=== PATIENT | female | born 1935 | race Caucasian/White ===

== ENCOUNTER 2018-06-07 09:43 | Emergency (ER) | payer MEDICARE ==
[2018-06-07] MEDS ORDERED: NORMAL SALINE 1000 ML 1,000 ML IV ONE ×3 (10:03→13:20)
--- NOTE | 2018-06-07 10:03 | ER Document Report ---
ED Medical Screen (RME) - General Chief Complaint: Dizziness Stated Complaint: LIGHTHEADED/BLACK STOOL Time Seen by Provider: 06/07/18 09:57 Mode of Arrival: Ambulatory Information source: Patient, Relative Notes: 82-year-old female with hypertension, hyperlipidemia presents via private vehicle from home with complaint of lightheadedness and 3 episodes of black stools. Patient states that she otherwise felt well yesterday. She states that this morning she had 3 bowel movements that were black with the last one showing maroon stools. She is complaining of some abdominal discomfort but denies any nausea, vomiting. Denies history of previous GI bleed. Does have a history of diverticulitis. She is not on any blood thinning medication. Patient hypotensive upon arrival. I have greeted and performed a rapid initial assessment of this patient. A comprehensive ED assessment and evaluation of the patient, analysis of test results and completion of medical decision making process we will be contacted by additional ED providers. PHYSICAL EXAMINATION: GENERAL: Well-appearing, well-nourished and in no acute distress. HEAD: Atraumatic, normocephalic. EYES: Pupils equal round extraocular movements intact, conjunctiva are normal. ENT: Nares patent NECK: Normal range of motion LUNGS: No respiratory distress Musculoskeletal: Normal range of motion NEUROLOGICAL: Normal speech, normal gait. PSYCH: Normal mood, normal affect. SKIN: Warm, Dry, normal turgor, no rashes or lesions noted. TRAVEL OUTSIDE OF THE [place] IN LAST 30 DAYS: No - Related Data Allergies/Adverse Reactions: No Known Allergies Allergy (Verified 06/07/18 09:48) Past Medical History - Social History Chew tobacco use (# tins/day): No Frequency of alcohol use: None Drug Abuse: None Renal/ Medical History: Denies: Hx Peritoneal Dialysis Physical Exam - Vital signs Vitals: Temp Pulse Resp BP Pulse Ox 98.8 F 108 H 18 97/70 L 99 06/07/18 09:53 06/07/18 09:53 06/07/18 09:53 06/07/18 09:53 06/07/18 09:53 Course - Vital Signs Vital signs: Temp Pulse Resp BP Pulse Ox 98.8 F 108 H 18 97/70 L 99 06/07/18 09:53 06/07/18 09:53 06/07/18 09:53 06/07/18 09:53 06/07/18 09:53
[2018-06-07 10:39] LABS: ABSOLUTE BASOPHILS # (AUTO) 0.1 10^3/uL (0.0-0.2); ABSOLUTE EOSINOPHILS # (AUTO) 0.1 10^3/uL (0.0-0.6); ABSOLUTE LYMPHOCYTES (AUTO) 2.8 10^3/uL (0.5-4.7); ABSOLUTE MONOCYTES (AUTO) 0.8 10^3/uL (0.1-1.4); ABSOLUTE NEUT (AUTO) 13.1 10^3/uL (1.7-8.2); BASOPHILS % (AUTO) 0.6 % (0-2); EOSINOPHILS % (AUTO) 0.7 % (0-6); HEMATOCRIT 36.7 % (36.0-47.0); LYMPHOCYTES % (AUTO) 16.6 % (13-45); MEAN CORPUSCULAR HGB CONC 32.7 g/dL (32.0-36.0); MEAN CORPUSCULAR VOLUME 89 fl (80-97); MONOCYTES % (AUTO) 4.8 % (3-13); PLATELET COUNT 280 10^3/uL (150-450); RED BLOOD COUNT 4.14 10^6/uL (3.72-5.28); RED CELL DISTRIBUTION WIDTH 14.7 % (11.5-14.0); SEGMENTED NEUTROPHILS % (AUTO) 77.3 % (42-78); TOTAL CELLS COUNTED % (AUTO) 100 %; WHITE BLOOD COUNT 16.9 10^3/uL (4.0-10.5)
[2018-06-07 10:42] LABS: INTERNATIONAL RATION (INR) 1.02; PARTIAL THROMBOPLASTIN TIME 28.2 SEC (23.5-35.8); PROTHROMBIN TIME 13.9 SEC (11.4-15.4)
[2018-06-07 10:50] LABS: ALANINE AMINOTRANSFERASE 23 U/L (9-52); ALBUMIN 4.2 g/dL (3.5-5.0); ALKALINE PHOSPHATASE 47 U/L (38-126); ANION GAP 13 (5-19); ASPARTATE AMINO TRANSFERASE 30 U/L (14-36); BILIRUBIN,DIRECT 0.2 mg/dL (0.0-0.4); BILIRUBIN,TOTAL 0.8 mg/dL (0.2-1.3); BLOOD UREA NITROGEN 46 mg/dL (7-20); CALCIUM 9.5 mg/dL (8.4-10.2); CARBON DIOXIDE 21 mmol/L (22-30); CHLORIDE 111 mmol/L (98-107); GLUCOSE 114 mg/dL (75-110); POTASSIUM 5.2 mmol/L (3.6-5.0); SODIUM 144.6 mmol/L (137-145)
--- NOTE | 2018-06-07 11:46 | ER Document Report ---
ED General - General Chief Complaint: Dizziness Stated Complaint: LIGHTHEADED/BLACK STOOL Time Seen by Provider: 06/07/18 09:57 Mode of Arrival: Ambulatory Information source: Patient TRAVEL OUTSIDE OF THE [place] IN LAST 30 DAYS: No - HPI Onset: This morning Onset/Duration: Sudden Quality of pain: No pain Severity: Severe Pain Level: 4 Associated symptoms: None Exacerbated by: Standing, Movement Relieved by: Supine Similar symptoms previously: No Recently seen / treated by doctor: No - Related Data Allergies/Adverse Reactions: codeine Allergy (Verified 06/07/18 10:13) Past Medical History - General Information source: Patient, Relative - Social History Smoking Status: Never Smoker Chew tobacco use (# tins/day): No Frequency of alcohol use: None Drug Abuse: None Family History: Reviewed & Not Pertinent Patient has suicidal ideation: No Patient has homicidal ideation: No - Past Medical History Cardiac Medical History: Reports: Hx Hypercholesterolemia, Hx Hypertension Renal/ Medical History: Denies: Hx Peritoneal Dialysis Past Surgical History: Reports: Hx Cholecystectomy - 1978, Hx Hysterectomy, Hx Orthopedic Surgery - b/l knee replacements , left partial shoulder, left hip replacement, Hx Tonsillectomy Review of Systems - Review of Systems Constitutional: Malaise. denies: Chills, Fever EENT: No symptoms reported Cardiovascular: denies: Chest pain, Palpitations Respiratory: No symptoms reported Gastrointestinal: Black stools. denies: Nausea, Vomiting Genitourinary: No symptoms reported Female Genitourinary: No symptoms reported Musculoskeletal: No symptoms reported Skin: No symptoms reported Hematologic/Lymphatic: No symptoms reported Neurological/Psychological: No symptoms reported -: Yes All other systems reviewed and negative Physical Exam - Vital signs Vitals: Temp Pulse Resp BP Pulse Ox 98.8 F 108 H 18 97/70 L 99 06/07/18 09:53 06/07/18 09:53 06/07/18 09:53 06/07/18 09:53 06/07/18 09:53 - General General appearance: Appears well, Alert In distress: None - HEENT Head: Normocephalic, Atraumatic Eyes: Normal Pupils: PERRL - Respiratory Respiratory status: No respiratory distress Chest status: Nontender Breath sounds: Normal Chest palpation: Normal - Cardiovascular Rhythm: Regular Heart sounds: Normal auscultation Murmur: No - Abdominal Inspection: Normal Distension: No distension Bowel sounds: Normal Tenderness: Nontender Organomegaly: No organomegaly - Rectal Tenderness: No Stool: Heme positive, Black. No: Bloody Hemorrhoids: None Notes: Arabella was Ms. Keren RN. - Back Back: Normal, Nontender - Extremities General upper extremity: Normal inspection, Nontender, Normal color, Normal ROM , Normal temperature General lower extremity: Normal inspection, Nontender, Normal color, Normal ROM , Normal temperature, Normal weight bearing. No: Ash's sign - Neurological Neuro grossly intact: Yes Cognition: Normal Orientation: AAOx4 Levon Coma Scale Eye Opening: Spontaneous [place] Coma Scale Verbal: Oriented [place] Coma Scale Motor: Obeys Commands [place] Coma Scale Total: 15 Speech: Normal Motor strength normal: LUE, RUE, LLE, RLE Sensory: Normal - Psychological Associated symptoms: Normal affect, Normal mood - Skin Skin Temperature: Warm Skin Moisture: Dry Skin Color: Normal Course - Vital Signs Vital signs: Temp Pulse Resp BP Pulse Ox 97.7 F 92 22 H 132/89 H 96 06/07/18 14:44 06/07/18 10:41 06/07/18 14:44 06/07/18 14:44 06/07/18 14:44 - Laboratory Result Diagrams: 06/07/18 10:13 06/07/18 10:13 Laboratory results interpreted by me: 06/07/18 06/07/18 10:13 10:13 WBC 16.9 H RDW 14.7 H Absolute Neutrophils 13.1 H Potassium 5.2 H Chloride 111 H Carbon Dioxide 21 L BUN 46 H Glucose 114 H - Diagnostic Test Radiology reviewed: Reports reviewed - EKG Interpretation by Me EKG shows normal: Sinus rhythm Rate: Tachycardia - 102 When compared to previous EKG there are: Previous EKG unavailable Additional EKG results interpreted by me: 06/07/18 12:17 No STEMI. - Transfer of Care Notes: 06/07/18 12:[address] Amaya at [facility] and she accepted the patient for transfer to their facility for further evaluation and management. 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 Critical Care Note - Critical Care Note Total time excluding time spent on procedures (mins): 40 Comments: Time was spent on multiple evaluations, consults for transfer, review of labs. Discharge - Discharge Clinical Impression: Gastrointestinal bleeding, upper Gastrointestinal bleeding Qualifiers: GI bleed type/associated pathology: unspecified gastrointestinal hemorrhage type Qualified Code(s): K92.2 - Gastrointestinal hemorrhage, unspecified Condition: Fair Disposition: [facility] Referrals: MEDARDO REGALADO NP [Primary Care Provider] - Follow up as needed
[2018-06-07] MEDS ORDERED: PANTOPRAZOLE SODIUM 40 MG VIAL IV ONE (12:17)
[2018-06-07] MEDS ORDERED: PANTOPRAZOLE SODIUM 40 MG VIAL IV PRN (12:18)
[2018-06-07] MEDS ORDERED: DEXTROSE 5%-NORMAL SALINE 1,000 ML IV ONE (13:20)
[2018-06-07 14:50] VITALS: BP 132/89
--- NOTE | 2018-06-07 17:28 | EKG REPORT ---
SEVERITY:- OTHERWISE NORMAL ECG - SINUS TACHYCARDIA : Confirmed by: Pat Donato MD 07-Jun-2018 17:28:04
== END 2018-06-07 15:00 | disposition short-term general hospital (02) ==
LOC: ER 09:43
DX: K92.2 Gastrointestinal hemorrhage, unspecified (principal); R42 Dizziness and giddiness; R19.5 Other fecal abnormalities; I10 Essential (primary) hypertension; R53.81 Other malaise
CPT/HCPCS: 93005; 99291; 96361; 96365; 96366; 86900; 86901; 36415; 86850; 82962; 83690; 85025; 85610; 85730; 82272; 80053; 93010; C9113; J7030; S0164